=== PATIENT | male | born 1980 | race Caucasian/White ===

== ENCOUNTER 2018-08-27 19:28 | Emergency (ER) | payer SELFPAY ==
[2018-08-27] MEDS ORDERED: Lorazepam 1 MG TAB ONE (20:10)
[2018-08-27] MEDS ORDERED: Nicotine 21 MG PATCH TOP SCH (20:15)
[2018-08-28] MEDS ORDERED: Lorazepam 1 MG TAB ONE (17:16)
[2018-08-28] MEDS ORDERED: Nicotine 14 MG PATCH TOP SCH (21:30)
[2018-08-28] MEDS ORDERED: risperiDONE 1 MG TAB ONE (22:45)
== END 2018-08-29 09:38 | disposition home or self-care (01) ==
LOC: ERS 19:28
DX: F30.9 Manic episode, unspecified (principal); I49.9 Cardiac arrhythmia, unspecified; E11.9 Type 2 diabetes mellitus without complications; I10 Essential (primary) hypertension; F17.210 Nicotine dependence, cigarettes, uncomplicated
CPT/HCPCS: 99284

== ENCOUNTER 2020-12-18 07:23 | Inpatient (IN) | payer SELFPAY ==
[2020-12-18] MEDS ORDERED: Aspirin Chewable 81 MG TAB ONE (08:01)
[2020-12-18 08:03] LABS: #Basophils 0.1 thou/uL (0.0-0.2); #Eosinphils 0.1 thou/uL (0.0-0.7); #Lymphocytes 3.7 thou/uL (1.20-3.40); #Monocytes 1.2 thou/uL (0.11-0.59); #Neutrophils 10.7 thou/uL (1.40-6.50); %Basophils 0.7 % (0.0-1.0); %Eosinophils 0.9 % (0.0-10.0); %Lymphocytes 23.1 % (21.0-51.0); %Monocytes 7.5 % (0.0-10.0); %Neutrophils 67.7 % (42.0-75.0); Hemoglobin 16.7 g/dL (14.0-18.0); Mean Corpuscular HGB CONC 32.7 g/dL (32.0-36.0); Mean Corpuscular Volume 82.5 fL (78.0-98.0); Mean Platelet Volume 8.4 fL (7.4-10.4); Platelet Count 352 thou/uL (130-400); RBC Distribution Width 12.2 % (11.5-14.5); White Blood Cell (WBC) Count 15.9 thou/uL (4.8-10.8)
[2020-12-18 08:35] LABS: Albumin 3.3 g/dL (3.5-5.0)
[2020-12-18 08:36] LABS: Chloride 101 mmol/L (98-107); Potassium 3.8 mmol/L (3.5-5.1); Sodium 132 mmol/L (136-145)
[2020-12-18 08:37] LABS: Calcium 9.1 mg/dL (7.8-10.44)
[2020-12-18 08:38] LABS: Globulin 2.7 g/dL (2.4-3.5); Glucose 347 mg/dL (70-105)
[2020-12-18 08:39] LABS: Anion Gap 16 mmol/L (10-20); Carbon Dioxide 19 mmol/L (22-29)
[2020-12-18 08:40] LABS: Alkaline Phosphatase 139 U/L (40-110)
[2020-12-18 08:41] LABS: Calc. Creatinine Clearance 0 mL/min (70-130)
[2020-12-18 08:42] LABS: BUN (Urea Nitrogen) 16 mg/dL (8.9-20.6)
[2020-12-18 08:43] LABS: AST (SGOT) 64 U/L (5-34)
[2020-12-18 08:44] LABS: ALT (SGPT) 75 U/L (8-55); Lipase 16 U/L (8-78)
[2020-12-18 09:38] LABS: Bacteria/HPF None Seen HPF (None Seen); Bilirubin Negative (Negative); Blood, Urine Negative (Negative); Clarity Clear (Clear); Glucose, Urine (Dipstick) Greater than 1000 mg/dL (Negative); Ketone, Urine Negative (Negative); Leukocyte 75 Leu/uL (Negative); Nitrite Negative (Negative); Protein, Urine (Dipstick) 100 mg/dL (Neg-Trace); RBC/HPF 0-3 HPF (0-3); Squamous Epithelial None Seen HPF (0-3); Urobilinogen Normal mg/dL (Less than 2); WBC/HPF 21-50 HPF (0-3)
[2020-12-18] MEDS ORDERED: Piperacillin/Tazobactam 4.5 GM VIAL ONE (09:38)
[2020-12-18 10:23] LABS: SARS-CoV-2 NAA Rapid Test Not Detected (NotDetected)
[2020-12-18] MEDS ORDERED: cefTRIAXone\\ROCEPHIN 2 GM VIAL ONE (10:27)
[2020-12-18] MEDS ORDERED: Furosemide 20 MG/2 ML VIAL ONE ×3 (11:09→13:56)
[2020-12-18 11:20] LABS: Lactic Acid 1.5 mmol/L (0.5-2.2)
[2020-12-18 12:06] LABS: Troponin I 0.077 ng/mL (< 0.028)
[2020-12-18] MEDS ORDERED: Ondansetron ODT 4 MG TAB PO PRN (12:42)
[2020-12-18] MEDS ORDERED: Acetaminophen 325 MG TAB PO PRN (12:42)
[2020-12-18] MEDS ORDERED: Dextrose 50% Abboject 50 ML SYRINGE SLOW IVP PRN (12:42)
[2020-12-18] MEDS ORDERED: Dextrose 5% in Water 1,000 ML IV PRN (12:42)
[2020-12-18] MEDS ORDERED: Nitroglycerin 0.4 MG TAB (25 Tab Bottle) SL PRN (12:45)
[2020-12-18] MEDS ORDERED: Piperacillin/Tazobactam 3.375 GM in Sodium Chloride 0.9% 100 ML IVPB SCH (13:00)
[2020-12-18] MEDS ORDERED: Iopamidol-370 76% 500 ML 1 ML ONE (13:29)
[2020-12-18] MEDS ORDERED: Electrolyte Replacement Protocol 1 EACH FS SCH ×2 (13:30→23:45)
[2020-12-18] MEDS ORDERED: Enoxaparin Sodium 40 MG/0.4 ML SYRINGE SC SCH (13:30)
[2020-12-18] MEDS ORDERED: Enoxaparin Sodium 40 MG/0.4 ML SYRINGE ONE (13:56)
[2020-12-18] MEDS: Furosemide 20 MG/2 ML VIAL SLOW IVP SCH (14:00)
[2020-12-18] MEDS ORDERED: Ondansetron ODT 4 MG TAB ONE (14:05)
[2020-12-18] MEDS ORDERED: Acetaminophen 325 MG TAB ONE (14:05)
[2020-12-18 14:28] LABS: Magnesium 1.5 mg/dL (1.6-2.6)
[2020-12-18] MEDS ORDERED: Magnesium Sulfate 2 GM in Sodium Chloride 0.9% 100 ML IVPB SCH (17:15)
[2020-12-18] MEDS: Carvedilol 3.125 MG TAB PO SCH (17:37)
[2020-12-18] MEDS: Potassium Chloride 20 MEQ TAB PO SCH (17:37)
[2020-12-18] MEDS: HumaLOG 300 UNITS/3 ML VIAL SC PRN ×2 (17:38→20:25)
[2020-12-18] MEDS ORDERED: Magnesium 2 GM/50 ML 2 GM in Premix Bag 1 BAG IVPB SCH (18:00)
[2020-12-18 18:24] VITALS: BMI 33.9
[2020-12-18] MEDS ORDERED: FLU VACC QS2021-22(6MOS UP)/PF 60 MCG/0.5 ML SYRINGE IM ONE (19:00)
[2020-12-18] MEDS: Atorvastatin Calcium 40 MG TAB PO SCH (19:18)
[2020-12-19 05:58] LABS: #Basophils 0.1 thou/uL (0.0-0.2); #Eosinphils 0.2 thou/uL (0.0-0.7); #Lymphocytes 2.9 thou/uL (1.20-3.40); #Monocytes 0.8 thou/uL (0.11-0.59); #Neutrophils 4.8 thou/uL (1.40-6.50); %Basophils 1.1 % (0.0-1.0); %Eosinophils 1.8 % (0.0-10.0); %Lymphocytes 33.4 % (21.0-51.0); %Monocytes 8.7 % (0.0-10.0); Hemoglobin 15.6 g/dL (14.0-18.0); Mean Corpuscular HGB CONC 31.8 g/dL (32.0-36.0); Mean Corpuscular Hemoglobin 26.6 pg (27.0-31.0); Mean Corpuscular Volume 83.7 fL (78.0-98.0); Mean Platelet Volume 7.7 fL (7.4-10.4); Platelet Count 291 thou/uL (130-400); RBC Distribution Width 12.2 % (11.5-14.5); Red Blood Cell (RBC) Count 5.86 mill/uL (4.70-6.10); White Blood Cell (WBC) Count 8.8 thou/uL (4.8-10.8)
[2020-12-19] MEDS: HumaLOG 300 UNITS/3 ML VIAL SC PRN ×4 (06:06→20:38)
[2020-12-19] MEDS: Furosemide 20 MG/2 ML VIAL SLOW IVP SCH ×2 (06:08→13:44)
[2020-12-19 06:25] LABS: ALT (SGPT) 118 U/L (8-55); AST (SGOT) 122 U/L (5-34); Albumin 3.1 g/dL (3.5-5.0); Alkaline Phosphatase 146 U/L (40-110); Anion Gap 15 mmol/L (10-20); BUN (Urea Nitrogen) 15 mg/dL (8.9-20.6); Bilirubin, Total 1.4 mg/dL (0.2-1.2); Calc. Creatinine Clearance 120 mL/min (70-130); Carbon Dioxide 24 mmol/L (22-29); Cardiac Risk 4.3 (Less than 4.5); Chloride 101 mmol/L (98-107); Cholesterol 90 mg/dl (< 200 Desired); Globulin 2.4 g/dL (2.4-3.5); Glucose 223 mg/dL (70-105); HDL Cholesterol 21 mg/dL (>60 Neg Risk); LDL Cholesterol, Calculated 55 mg/dL; Magnesium 1.7 mg/dL (1.6-2.6); Potassium 3.6 mmol/L (3.5-5.1); Protein, Total 5.5 g/dL (6.0-8.3); Sodium 136 mmol/L (136-145); Triglycerides 70 mg/dL (Less than 150)
[2020-12-19] MEDS ORDERED: Magnesium 2 GM/50 ML 2 GM in Premix Bag 1 BAG IVPB SCH (07:00)
[2020-12-19] MEDS ORDERED: Furosemide 20 MG TAB PO SCH (09:00)
[2020-12-19] MEDS: Enoxaparin Sodium 40 MG/0.4 ML SYRINGE SC SCH (09:10)
[2020-12-19] MEDS: Aspirin 81 mg Enteric Coated Tablet PO SCH (09:11)
[2020-12-19] MEDS: Potassium Chloride 20 MEQ TAB PO SCH ×2 (09:11→16:16)
[2020-12-19] MEDS: Carvedilol 3.125 MG TAB PO SCH ×2 (09:11→16:16)
[2020-12-19] MEDS: cefTRIAXone\\ROCEPHIN 1 GM in Sodium Chloride 0.9% 100 ML IVPB SCH (12:43)
[2020-12-19 17:54] LABS: Bacteria/HPF None Seen HPF (None Seen); Bilirubin Negative (Negative); Blood, Urine Negative (Negative); Clarity Clear (Clear); Glucose, Urine (Dipstick) 70 mg/dL (Negative); Ketone, Urine Negative (Negative); Leukocyte 75 Leu/uL (Negative); Nitrite Negative (Negative); Protein, Urine (Dipstick) 10 mg/dL (Neg-Trace); RBC/HPF 0-3 HPF (0-3); Specific Gravity, Urine 1.012 (1.002-1.036); Squamous Epithelial 0-3 HPF (0-3); Urobilinogen Normal mg/dL (Less than 2); pH, Urine 5.5 (5.0-9.0)
[2020-12-19 17:59] LABS: Urine Culture Reflex Yes Yes
[2020-12-19] MEDS ORDERED: Furosemide 20 MG/2 ML VIAL SLOW IVP SCH (20:00)
[2020-12-19] MEDS: Atorvastatin Calcium 40 MG TAB PO SCH (20:38)
[2020-12-19] MEDS ORDERED: Lantus 1000 UNITS/10 ML VIAL SC SCH (21:00)
[2020-12-19] MEDS ORDERED: Bumetanide 1 MG TAB PO SCH (21:00)
[2020-12-20 04:51] LABS: #Basophils 0.1 thou/uL (0.0-0.2); #Eosinphils 0.1 thou/uL (0.0-0.7); #Lymphocytes 3.9 thou/uL (1.20-3.40); #Monocytes 1.3 thou/uL (0.11-0.59); #Neutrophils 7.4 thou/uL (1.40-6.50); %Basophils 0.6 % (0.0-1.0); %Eosinophils 0.5 % (0.0-10.0); %Lymphocytes 30.4 % (21.0-51.0); %Monocytes 10.4 % (0.0-10.0); %Neutrophils 58.2 % (42.0-75.0); Hemoglobin 15.9 g/dL (14.0-18.0); Mean Corpuscular HGB CONC 33.3 g/dL (32.0-36.0); Mean Corpuscular Hemoglobin 27.5 pg (27.0-31.0); Mean Corpuscular Volume 82.5 fL (78.0-98.0); Mean Platelet Volume 7.8 fL (7.4-10.4); Platelet Count 298 thou/uL (130-400); RBC Distribution Width 12.1 % (11.5-14.5); Red Blood Cell (RBC) Count 5.77 mill/uL (4.70-6.10); White Blood Cell (WBC) Count 12.8 thou/uL (4.8-10.8)
[2020-12-20 05:03] LABS: Hemoglobin A1c 13.8 % (4.0-6.0)
[2020-12-20 05:20] LABS: Troponin I 0.075 ng/mL (< 0.028)
[2020-12-20 05:21] LABS: ALT (SGPT) 351 U/L (8-55); AST (SGOT) 476 U/L (5-34); Albumin 3.4 g/dL (3.5-5.0); Alkaline Phosphatase 233 U/L (40-110); Anion Gap 16 mmol/L (10-20); BUN (Urea Nitrogen) 17 mg/dL (8.9-20.6); Bilirubin, Total 1.9 mg/dL (0.2-1.2); Calc. Creatinine Clearance 109 mL/min (70-130); Calcium 8.9 mg/dL (7.8-10.44); Carbon Dioxide 25 mmol/L (22-29); Chloride 99 mmol/L (98-107); Globulin 2.4 g/dL (2.4-3.5); Glucose 173 mg/dL (70-105); Potassium 3.5 mmol/L (3.5-5.1); Protein, Total 5.8 g/dL (6.0-8.3); Sodium 136 mmol/L (136-145)
[2020-12-20] MEDS: HumaLOG 300 UNITS/3 ML VIAL SC PRN ×4 (05:59→20:34)
[2020-12-20] MEDS ORDERED: Furosemide 40 MG/4 ML VIAL SLOW IVP SCH ×2 (06:00→12:00)
[2020-12-20] MEDS ORDERED: Potassium Chloride 20 MEQ TAB PO SCH (07:00)
[2020-12-20] MEDS: Potassium Chloride 20 MEQ TAB PO SCH ×2 (07:15→17:44)
[2020-12-20] MEDS: Carvedilol 3.125 MG TAB PO SCH ×2 (07:16→17:44)
[2020-12-20] MEDS: Aspirin 81 mg Enteric Coated Tablet PO SCH (07:17)
[2020-12-20] MEDS: Enoxaparin Sodium 40 MG/0.4 ML SYRINGE SC SCH (07:17)
[2020-12-20] MEDS ORDERED: Bumetanide 1 MG TAB PO SCH (07:30)
[2020-12-20] MEDS ORDERED: Lantus 1000 UNITS/10 ML VIAL SC SCH (09:45)
[2020-12-20 10:01] LABS: HBCM Index 0.07 S/CO (0-0.79); HBSAg Index 0.22 S/CO (0-0.99); Hep A IgM AB Non-Reactive (NonReactive); Hep A IgM S/CO 0.14 S/CO (0-0.79); Hep B Surf Ag Non-Reactive S/CO (NonReactive); Hep C IgG Ab Non-Reactive (NonReactive); Hep C Index 0.13 S/CO (0-0.79); Hepatitis B Core IgM Abs Non-Reactive (NonReactive)
[2020-12-20] MEDS: cefTRIAXone\\ROCEPHIN 1 GM in Sodium Chloride 0.9% 100 ML IVPB SCH (14:08)
[2020-12-20 15:16] LABS: Amphetamine Not Detected (NotDetected); Barbiturates Screen Not Detected (NotDetected); Benzodiazepine Screen Not Detected (NotDetected); Cocaine Metabolite Screen Not Detected (NotDetected); Methadone Not Detected (NotDetected); Methamphetamine Not Detected (NotDetected); Opiate Screen Not Detected (NotDetected); Oxycodone Screen Not Detected (NotDetected); Phencyclidine (PCP) Not Detected (NotDetected); THC/Cannabinoid Screen Not Detected (NotDetected); Tricyclic Screen Not Detected (NotDetected)
[2020-12-20] MEDS: Lantus 1000 UNITS/10 ML VIAL SC SCH (20:33)
[2020-12-20] MEDS: Lisinopril 2.5 MG TAB PO SCH (20:46)
[2020-12-20] MEDS ORDERED: Lisinopril 10 MG TAB PO SCH (21:00)
[2020-12-21 05:28] LABS: #Basophils 0.1 thou/uL (0.0-0.2); #Lymphocytes 3.1 thou/uL (1.20-3.40); #Monocytes 1.3 thou/uL (0.11-0.59); #Neutrophils 7.5 thou/uL (1.40-6.50); %Basophils 0.7 % (0.0-1.0); %Eosinophils 0.4 % (0.0-10.0); Mean Corpuscular HGB CONC 31.9 g/dL (32.0-36.0); Mean Corpuscular Hemoglobin 27.1 pg (27.0-31.0); Mean Corpuscular Volume 84.8 fL (78.0-98.0); Mean Platelet Volume 8.1 fL (7.4-10.4); Platelet Count 280 thou/uL (130-400); RBC Distribution Width 12.3 % (11.5-14.5); Red Blood Cell (RBC) Count 5.55 mill/uL (4.70-6.10); White Blood Cell (WBC) Count 12.1 thou/uL (4.8-10.8)
[2020-12-21 05:52] LABS: Anion Gap 14 mmol/L (10-20); BUN (Urea Nitrogen) 21 mg/dL (8.9-20.6); Calc. Creatinine Clearance 99 mL/min (70-130); Calcium 8.8 mg/dL (7.8-10.44); Carbon Dioxide 29 mmol/L (22-29); Chloride 98 mmol/L (98-107); Glucose 133 mg/dL (70-105); Magnesium 1.7 mg/dL (1.6-2.6); Potassium 4.2 mmol/L (3.5-5.1); Sodium 137 mmol/L (136-145)
[2020-12-21] MEDS ORDERED: Furosemide 40 MG/4 ML VIAL SLOW IVP SCH ×2 (06:15→18:00)
[2020-12-21] MEDS ORDERED: Potassium Chloride 20 MEQ TAB PO SCH (06:15)
[2020-12-21] MEDS ORDERED: Magnesium 2 GM/50 ML 2 GM in Premix Bag 1 BAG IVPB SCH (06:15)
[2020-12-21] MEDS: Potassium Chloride 20 MEQ TAB PO SCH ×2 (08:29→17:59)
[2020-12-21] MEDS: Enoxaparin Sodium 40 MG/0.4 ML SYRINGE SC SCH (08:29)
[2020-12-21] MEDS: Aspirin 81 mg Enteric Coated Tablet PO SCH (08:29)
[2020-12-21] MEDS: Carvedilol 3.125 MG TAB PO SCH ×2 (08:30→17:59)
[2020-12-21] MEDS: Lantus 1000 UNITS/10 ML VIAL SC SCH ×2 (08:38→20:07)
[2020-12-21] MEDS: HumaLOG 300 UNITS/3 ML VIAL SC PRN ×2 (11:19→20:58)
[2020-12-21] MEDS: Lisinopril 2.5 MG TAB PO SCH (20:08)
[2020-12-22 05:30] LABS: Anion Gap 15 mmol/L (10-20); BUN (Urea Nitrogen) 26 mg/dL (8.9-20.6); Calc. Creatinine Clearance 111 mL/min (70-130); Calcium 8.9 mg/dL (7.8-10.44); Carbon Dioxide 23 mmol/L (22-29); Chloride 99 mmol/L (98-107); Glucose 169 mg/dL (70-105); Potassium 3.9 mmol/L (3.5-5.1); Sodium 133 mmol/L (136-145)
[2020-12-22] MEDS ORDERED: Furosemide 40 MG/4 ML VIAL SLOW IVP SCH (06:00)
[2020-12-22] MEDS: HumaLOG 300 UNITS/3 ML VIAL SC PRN ×2 (06:03→10:56)
[2020-12-22 08:21] VITALS: BP 108/65; TEMP 98.3
[2020-12-22] MEDS: Carvedilol 3.125 MG TAB PO SCH (08:23)
[2020-12-22] MEDS: Enoxaparin Sodium 40 MG/0.4 ML SYRINGE SC SCH (08:23)
[2020-12-22] MEDS: Aspirin 81 mg Enteric Coated Tablet PO SCH (08:23)
[2020-12-22] MEDS: Potassium Chloride 20 MEQ TAB PO SCH (08:23)
[2020-12-22] MEDS: Lantus 1000 UNITS/10 ML VIAL SC SCH (08:24)
[2020-12-22] MEDS ORDERED: Carvedilol 3.125 MG TAB PO SCH ×2 (08:58→17:00)
[2020-12-22] MEDS ORDERED: Lisinopril 5 MG TAB PO SCH (21:00)
== END 2020-12-22 11:00 | disposition home or self-care (01) | DRG 291 ==
LOC: ERS 07:23 → ERHOLD 11:02 → 2SW 17:01
PROVIDERS: ADMIT Internal Medicine; ATTEND Internal Medicine
DX: I11.0 Hypertensive heart disease with heart failure (principal); I50.43 Acute on chronic combined systolic (congestive) and diastolic (congestive) heart failure; R65.10 Systemic inflammatory response syndrome (SIRS) of non-infectious origin without acute organ dysfunction; Z20.822 Contact with and (suspected) exposure to COVID-19; E78.5 Hyperlipidemia, unspecified; I25.10 Atherosclerotic heart disease of native coronary artery without angina pectoris; R77.8 Other specified abnormalities of plasma proteins; K80.20 Calculus of gallbladder without cholecystitis without obstruction; F41.9 Anxiety disorder, unspecified; F32.A Depression, unspecified; F43.10 Post-traumatic stress disorder, unspecified; R59.0 Localized enlarged lymph nodes; I25.5 Ischemic cardiomyopathy; E11.65 Type 2 diabetes mellitus with hyperglycemia; Z28.21 Immunization not carried out because of patient refusal; Z91.14 Patient's other noncompliance with medication regimen; I25.2 Old myocardial infarction; Z95.5 Presence of coronary angioplasty implant and graft; Z95.810 Presence of automatic (implantable) cardiac defibrillator; Z87.891 Personal history of nicotine dependence; Z79.899 Other long term (current) drug therapy
CPT/HCPCS: 36415; 36416; 71045; 71275; 76705; 80048; 80053; 80061; 80074; 80306; 81001; 81003; 81015; 82553; 83036; 83605; 83690; 83735; 83880; 84443; 84484; 85025; 85379; 87040; 87086; 93005; 93306; 94760; 96365; 96367; 96375; J0696; J1650; J1815; J1940; J2543; J3475; J3490; Q0162; Q9967; U0002